=== PATIENT | male | born 1965 | race African-American/Black ===

== ENCOUNTER 2018-09-27 07:17 | Emergency (ER) | payer OTHER ==
[~2018-09-27] VITALS: Ht 188 cm; Wt 90.0 kg
[2018-09-27] MEDS ORDERED: LORAZEPAM 2MG/ML CPJ IM STA (08:04)
[2018-09-27 08:30] LABS: BASOPHILS % 0.8 % (0.0-2.0); EOSINOPHILS % 0.4 % (0.0-5.0); HEMATOCRIT. 48.1 % (42.0-52.0); HEMOGLOBIN. 15.9 g/dL (14.0-18.0); LYMPHOCYTES % 22.2 % (20.0-50.0); MEAN CORPUSCULAR HEMOGLOBIN 31.5 pg (28.0-32.0); MEAN CORPUSCULAR VOLUME 94.9 fL (80.0-94.0); MEAN PLATELET VOLUME 7.7 fl (7.4-10.4); MONOCYTES % 10.3 % (2.0-8.0); NEUTROPHILS % 66.3 % (40.0-76.0); PLATELET 162 x1000/uL (130-400); RED BLOOD CELL COUNT 5.07 mill/uL (4.7-6.1)
[2018-09-27 08:33] LABS: CHLORIDE 102 mEq/L (98-107)
[2018-09-27] MEDS ORDERED: SODIUM CHLORIDE 0.9% 1,000 ML IV ONE (08:44)
[2018-09-27] MEDS ORDERED: ONDANSETRON HCL 4MG/2ML INJ IV STA (08:44)
[2018-09-27] MEDS ORDERED: MECLIZINE 25MG TABLET PO ONE (10:00)
[2018-09-27] MEDS ORDERED: ONDANSETRON HCL 4MG/2ML INJ IV ONE (10:00)
[2018-09-27 13:41] VITALS: BP 156/93
== END 2018-09-27 13:47 | disposition short-term general hospital (02) ==
LOC: ER 07:33 → CANBEDREQ 09-28 00:21
DX: R11.2 Nausea with vomiting, unspecified (principal); R42 Dizziness and giddiness; H81.399 Other peripheral vertigo, unspecified ear; R61 Generalized hyperhidrosis; R55 Syncope and collapse; I10 Essential (primary) hypertension; F12.10 Cannabis abuse, uncomplicated; F17.200 Nicotine dependence, unspecified, uncomplicated; Z96.649 Presence of unspecified artificial hip joint
CPT/HCPCS: 36415; 70450; 71045; 80053; 83880; 84484; 85025; 93005; 96361; 96374; 96375; 99285; J2405; J7030; J8597